=== PATIENT | female | born 1975 ===

== ENCOUNTER 2016-11-16 22:47 | Emergency (ER) | payer SELFPAY ==
[2016-11-17 00:03] VITALS: BP 122/69; PULSE 96; RESP 16; TEMP 98.7; O2SAT 99
--- NOTE | 2016-11-17 01:50 | ED PDOC ---
HPI: CCC, URI, Sore Throat Time Seen by Provider: 11/17/16 01:49 Chief Complaint (Nursing): ENT Problem Chief Complaint (Provider): throat pain, sore throat History Per: Patient Additional Complaint(s): 41-year-old female presents to emergency department with sore throat and bilateral ear pain ongoing for 7 days. Patient has not been taking any medication for symptomatic relief. She denies recent travel or known sick contacts, no coughing, chest pain or shortness of breath. Patient is tolerating liquids and solids. Past Medical History Reviewed: Historical Data, Nursing Documentation, Vital Signs Vital Signs: Last Vital Signs Temp 98.7 F 11/17/16 00:00 Pulse 96 H 11/17/16 00:00 Resp 16 11/17/16 00:00 BP 122/69 11/17/16 00:00 Pulse Ox 99 11/17/16 02:30 - Medical History PMH: No Chronic Diseases - Surgical History Surgical History: Cholecystectomy - Family History Family History: States: No Known Family Hx - Living Arrangements Living Arrangements: With Family - Social History Current smoker - smoking cessation education provided: No Alcohol: None Drugs: Denies - Home Medications Home Medications: Ambulatory Orders Medication Instructions Recorded Nitrofurantoin Macrocrystals 100 mg PO BID #10 cap 03/22/15 [Macrobid] Cephalexin [Keflex] 500 mg PO TID #15 cap 08/05/15 Phenazopyridine HCl [Pyridium] 100 mg PO BID #6 tablet 08/05/15 Ibuprofen 600 mg PO Q6H PRN #20 tab 02/03/16 Ciprofloxacin/Ciprofloxa HCl 500 mg PO BID #10 ter 04/04/16 [Ciprofloxacin] Amoxicillin/Clavulanate [Augmentin 1 tab PO BID #20 tab 05/30/16 500 MG-125 MG] Fluticasone Propionate [Flonase] 2 spray NS DAILY #1 bottle 05/30/16 Dicyclomine [Dicyclomine HCl] 10 mg PO TID PRN #10 cap 07/15/16 Ondansetron [Zofran] 4 mg PO Q6H PRN #10 tab 07/15/16 Loperamide [Imodium] 2 mg PO ONCE #10 cap 07/16/16 Ranitidine HCl [Zantac] 1 tab PO DAILY PRN #10 tablet 07/16/16 Amoxicillin/Clavulanate [Augmentin 1 tab PO BID #14 tab 11/17/16 875 MG-125 MG] Ibuprofen [Motrin] 600 mg PO Q6 PRN #15 tab 11/17/16 - Allergies Allergies/Adverse Reactions: Allergies Allergy/AdvReac Type Severity Reaction Status Date / Time No Known Allergies Allergy Verified 07/16/16 10:25 Review of Systems ROS Statement: Except As Marked, All Systems Reviewed And Found Negative Constitutional: Negative for: Fever, Chills ENT: Positive for: Ear Pain, Throat Pain, Throat Swelling Respiratory: Negative for: Cough Neurological: Negative for: Headache, Dizziness Physical Exam - Reviewed Nursing Documentation Reviewed: Yes Vital Signs Reviewed: Yes - Physical Exam Appears: Positive for: Well, Non-toxic, No Acute Distress Skin: Negative for: Rash Eye Exam: Positive for: Normal appearance, EOMI, PERRL ENT: Positive for: TM Is/Are (normal bilaterally), Pharyngeal Erythema, Tonsillar Exudate (bilaterally), Tonsillar Swelling Cardiovascular/Chest: Positive for: Regular Rate, Rhythm Respiratory: Positive for: Normal Breath Sounds Neurologic/Psych: Positive for: Alert, Oriented - Laboratory Results Urine POC: Negative - ECG O2 Sat by Pulse Oximetry: 99 Pulse Ox Interpretation: Normal Medical Decision Making Medical Decision Making: Impression: Pharyngitis, tonsillitis Plan: Throat culture Initial dose augmentin 875 mg IM decadron PO motrin Rx motrin and augmentin given. Disposition - Clinical Impression Clinical Impression: Tonsillitis, Pharyngitis - Patient ED Disposition Is Patient to be Admitted: No Counseled Patient/Family Regarding: Studies Performed, Diagnosis, Need For Followup, Rx Given - Disposition Referrals: [facility] [Outside] Disposition: Routine/Home Disposition Time: 02:26 Condition: STABLE Additional Instructions: Take rx meds as directed. Drink plenty of fluids. Follow up with primary care doctor or clinic in 2-3 days. Prescriptions: Amoxicillin/Clavulanate [Augmentin 875 MG-125 MG] 1 tab PO BID #14 tab Ibuprofen [Motrin] 600 mg PO Q6 PRN #15 tab PRN Reason: Pain, Moderate (4-7) Instructions: Pharyngitis (ED), Tonsillitis (ED) Print Language: FAROESE
[2016-11-17] MEDS ORDERED: Amoxicillin-Clav 875-125 mg Tab PO STA (02:23)
[2016-11-17] MEDS ORDERED: Amoxicillin-Clav 875-125 mg Tab PO ONE (03:02)
== END 2016-11-17 03:27 | disposition home or self-care (01) ==
LOC: H.ER 22:47
DX: J03.90 Acute tonsillitis, unspecified (principal); H92.09 Otalgia, unspecified ear

== ENCOUNTER 2016-11-20 18:48 | Emergency (ER) | payer SELFPAY ==
[2016-11-20 19:29] VITALS: BP 148/84; PULSE 85; RESP 16; TEMP 98.2; O2SAT 100
--- NOTE | 2016-11-20 20:19 | ED PDOC ---
HPI: CCC, URI, Sore Throat Time Seen by Provider: 11/20/16 19:42 Chief Complaint (Nursing): ENT Problem Chief Complaint (Provider): Cough, Congestion, Sore Throat History Per: Patient History/Exam Limitations: no limitations Have you had recent travel within the past 21 days to any of the following countries: [place], [place], [place] or [place]?: No Onset/Duration Of Symptoms: Days (4 days) Current Symptoms Are (Timing): Still Present Associated Symptoms: Sore Throat, Cough, Nasal Congestion. denies: Fever Additional Complaint(s): Manisha Gould, a 41 year old female, presents to the ED with cough, congestion and sore throat she has been experiencing for over a week. The patient states she was initially seen in the ED 4 days ago and was prescribed augmentin and ibuprofen without relief. She states that despite taking medicine her symptoms have not improved. Denies fever, sick contact, shortness of breath , throat swelling, and rash. Past Medical History Reviewed: Historical Data, Nursing Documentation, Vital Signs Vital Signs: Last Vital Signs Temp 98.2 F 11/20/16 19:27 Pulse 85 11/20/16 19:27 Resp 16 11/20/16 19:27 BP 148/84 11/20/16 19:27 Pulse Ox 100 11/20/16 20:28 - Medical History PMH: No Chronic Diseases - Surgical History Surgical History: Cholecystectomy - Family History Family History: States: Unknown Family Hx - Home Medications Home Medications: Ambulatory Orders Medication Instructions Recorded Nitrofurantoin Macrocrystals 100 mg PO BID #10 cap 03/22/15 [Macrobid] Cephalexin [Keflex] 500 mg PO TID #15 cap 08/05/15 Phenazopyridine HCl [Pyridium] 100 mg PO BID #6 tablet 08/05/15 Ibuprofen 600 mg PO Q6H PRN #20 tab 02/03/16 Ciprofloxacin/Ciprofloxa HCl 500 mg PO BID #10 ter 04/04/16 [Ciprofloxacin] Amoxicillin/Clavulanate [Augmentin 1 tab PO BID #20 tab 05/30/16 500 MG-125 MG] Fluticasone Propionate [Flonase] 2 spray NS DAILY #1 bottle 05/30/16 Dicyclomine [Dicyclomine HCl] 10 mg PO TID PRN #10 cap 07/15/16 Ondansetron [Zofran] 4 mg PO Q6H PRN #10 tab 07/15/16 Loperamide [Imodium] 2 mg PO ONCE #10 cap 07/16/16 Ranitidine HCl [Zantac] 1 tab PO DAILY PRN #10 tablet 07/16/16 Amoxicillin/Clavulanate [Augmentin 1 tab PO BID #14 tab 11/17/16 875 MG-125 MG] Ibuprofen [Motrin] 600 mg PO Q6 PRN #15 tab 11/17/16 Benzonatate [Tessalon Perle] 100 mg PO Q8 PRN #30 capsule 11/20/16 Fluticasone Propionate [Flonase] 2 spr NS DAILY PRN #1 bottle 11/20/16 - Allergies Allergies/Adverse Reactions: Allergies Allergy/AdvReac Type Severity Reaction Status Date / Time No Known Allergies Allergy Verified 07/16/16 10:25 Review of Systems Constitutional: Negative for: Fever ENT: Positive for: Nose Congestion, Throat Pain, Other Respiratory: Positive for: Cough. Negative for: Shortness of Breath Skin: Negative for: Rash Physical Exam - Reviewed Nursing Documentation Reviewed: Yes Vital Signs Reviewed: Yes - Physical Exam Appears: Positive for: Non-toxic, No Acute Distress Head Exam: Positive for: ATRAUMATIC, NORMOCEPHALIC Skin: Positive for: Normal Color, Warm. Negative for: Rash Eye Exam: Positive for: EOMI, Normal appearance, PERRL ENT: Positive for: TM Is/Are (non-erythematous, non-bulging b/l), Tonsillar Swelling (minimal tonsillar swelling.), Other (Tonsils non kissiing; able to swallow saliva; no trismus). Negative for: Sinus Pain/Drainage, Pharyngeal Erythema, Tonsillar Exudate Neck: Positive for: Normal, Painless ROM Cardiovascular/Chest: Positive for: Regular Rate, Rhythm Respiratory: Positive for: Normal Breath Sounds, Other (Actively coughing; lungs clear.). Negative for: Decreased Breath Sounds, Accessory Muscle Use, Crackles, Rales, Rhonchi, Wheezing, Respiratory Distress Gastrointestinal/Abdominal: Positive for: Normal Exam, Soft. Negative for: Tenderness, Organomegaly Back: Positive for: Normal Inspection. Negative for: L CVA Tenderness, R CVA Tenderness Extremity: Positive for: Normal ROM Neurologic/Psych: Positive for: Alert, Oriented Comments: No organalmegaly. - Laboratory Results Urine POC: Negative - ECG O2 Sat by Pulse Oximetry: 100 (RA) Pulse Ox Interpretation: Normal - Radiology X-Ray: Interpreted by Me (CXR, neck soft tissue x-ray) X-Ray Interpretation: No Acute Disease Medical Decision Making Medical Decision Makin:42 Initial Impression: 41 year old female presenting with cough, sore throat and nasal congestion. Initial Plan: * CXR PA&LAT * RAD neck soft tissue * Infectious mononucleosis Scribe Attestation Documented by Jessica Milan acting as a scribe for Wilbert Corea PA-C. Provider Attestation: All medical record entries made by the Scribe were at my direction and personally dictated by me. I have reviewed the chart and agree that the record accurately reflects my personal performance of the history, physical exam, medical decision making, and the department course for this patient. I have also personally directed, reviewed, and agree with the discharge instructions and disposition Disposition - Clinical Impression Clinical Impression: URI (upper respiratory infection) - Patient ED Disposition Is Patient to be Admitted: No - Disposition Referrals: [facility] [Outside] Disposition: Routine/Home Disposition Time: 21:50 Condition: STABLE Prescriptions: Benzonatate [Tessalon Perle] 100 mg PO Q8 PRN #30 capsule PRN Reason: Cough Fluticasone Propionate [Flonase] 2 spr NS DAILY PRN #1 bottle PRN Reason: Allergy Symptoms Instructions: Upper Respiratory Infection (ED) Print Language: TAMAZIGHT
--- NOTE | 2016-11-21 10:59 | RAD ---
PROCEDURE: Radiographs of the neck (soft tissue). HISTORY: pain COMPARISON: None. TECHNIQUE: Frontal and Lateral Radiographs of the neck, optimized for soft tissue visualization. FINDINGS: SOFT TISSUES: The prevertebral soft tissues unremarkable. No evidence of significant of adenoidal or tonsillar enlargement. Airway is patent. CERVICAL SPINE: No acute compression nor displaced fractures. Vertebral bodies exhibit normal stature. Mild straightening of the normal cervical lordosis however vertebral bodies otherwise exhibit normal alignment. Vertebral bodies and facets are otherwise normally aligned Mild multilevel degenerative spondylosis most notably affecting C5-C6 and C6-C7 levels. OTHER FINDINGS: None. IMPRESSION: Unremarkable radiographs of the soft tissues of the neck. . Mild degenerative spondylosis most notably affecting C5-C6 however C6-C7 and to a lesser degree remaining levels
--- NOTE | 2016-11-21 10:59 | RAD ---
HISTORY: cough COMPARISON: Comparison chest 05/18/2014. TECHNIQUE: Chest PA and lateral FINDINGS: LUNGS: No active pulmonary disease. PLEURA: No significant pleural effusion identified. No pneumothorax apparent. CARDIOVASCULAR: Normal. OSSEOUS STRUCTURES: Mild multilevel degenerative spondylosis of the thoracic spine. VISUALIZED UPPER ABDOMEN: Normal. OTHER FINDINGS: None. IMPRESSION: No active disease.
== END 2016-11-20 22:13 | disposition home or self-care (01) ==
LOC: H.ER 18:48
DX: J06.9 Acute upper respiratory infection, unspecified (principal); R09.81 Nasal congestion; R05 Cough; J02.9 Acute pharyngitis, unspecified

== ENCOUNTER 2017-01-07 12:31 | Emergency (ER) | payer OTHER ==
[2017-01-07 12:39] VITALS: BP 115/65; PULSE 77; RESP 18; TEMP 98.2; O2SAT 99
--- NOTE | 2017-01-07 13:07 | ED PDOC ---
HPI: Female Pain Time Seen by Provider: 01/07/17 12:45 Chief Complaint (Nursing): Female Genitourinary Chief Complaint (Provider): Dysuria History Per: Patient, Family (Patient's daughter at bedside is translating in Bangladeshi) History/Exam Limitations: no limitations Current Symptoms Are (Timing): Still Present Additional Complaint(s): Manisha Howe is a 41 year old female who presents to the emergency department with a complaint of dysuria and hematuria ongoing for 2 days. She denies any fever, chills, vomiting, or back pain. Patient does have slight suprapubic pain. No associated vaginal discharge. Patient denies concern for STD. LMP: 12/24/16 PMD: none Past Medical History Reviewed: Historical Data, Nursing Documentation, Vital Signs Vital Signs: Last Vital Signs Temp 98.2 F 01/07/17 12:38 Pulse 77 01/07/17 12:38 Resp 18 01/07/17 12:38 BP 115/65 01/07/17 12:38 Pulse Ox 99 01/07/17 12:38 - Medical History PMH: No Chronic Diseases - Surgical History Surgical History: Cholecystectomy - Family History Family History: States: No Known Family Hx - Living Arrangements Living Arrangements: With Family - Social History Current smoker - smoking cessation education provided: No Alcohol: None Drugs: Denies - Home Medications Home Medications: Ambulatory Orders Medication Instructions Recorded Nitrofurantoin Macrocrystals 100 mg PO BID #10 cap 03/22/15 [Macrobid] Cephalexin [Keflex] 500 mg PO TID #15 cap 08/05/15 Phenazopyridine HCl [Pyridium] 100 mg PO BID #6 tablet 08/05/15 Ibuprofen 600 mg PO Q6H PRN #20 tab 02/03/16 Ciprofloxacin/Ciprofloxa HCl 500 mg PO BID #10 ter 04/04/16 [Ciprofloxacin] Amoxicillin/Clavulanate [Augmentin 1 tab PO BID #20 tab 05/30/16 500 MG-125 MG] Fluticasone Propionate [Flonase] 2 spray NS DAILY #1 bottle 05/30/16 Dicyclomine [Dicyclomine HCl] 10 mg PO TID PRN #10 cap 07/15/16 Ondansetron [Zofran] 4 mg PO Q6H PRN #10 tab 07/15/16 Loperamide [Imodium] 2 mg PO ONCE #10 cap 07/16/16 Ranitidine HCl [Zantac] 1 tab PO DAILY PRN #10 tablet 07/16/16 Amoxicillin/Clavulanate [Augmentin 1 tab PO BID #14 tab 11/17/16 875 MG-125 MG] Ibuprofen [Motrin] 600 mg PO Q6 PRN #15 tab 11/17/16 Benzonatate [Tessalon Perle] 100 mg PO Q8 PRN #30 capsule 11/20/16 Fluticasone Propionate [Flonase] 2 spr NS DAILY PRN #1 bottle 11/20/16 Nitrofurantoin Macrocrystals 100 mg PO BID #14 cap 01/07/17 [Macrobid] Phenazopyridine HCl [Pyridium] 200 mg PO TID PRN #6 tablet 01/07/17 - Allergies Allergies/Adverse Reactions: Allergies Allergy/AdvReac Type Severity Reaction Status Date / Time No Known Allergies Allergy Verified 07/16/16 10:25 Review of Systems ROS Statement: Except As Marked, All Systems Reviewed And Found Negative Constitutional: Negative for: Fever, Chills Gastrointestinal: Positive for: Abdominal Pain. Negative for: Nausea, Vomiting Genitourinary Female: Positive for: Dysuria, Hematuria. Negative for: Vaginal Discharge, Vaginal Bleeding Musculoskeletal: Negative for: Back Pain Neurological: Negative for: Headache, Dizziness Physical Exam - Reviewed Nursing Documentation Reviewed: Yes Vital Signs Reviewed: Yes - Physical Exam Appears: Positive for: Well, Non-toxic, No Acute Distress Head Exam: Positive for: ATRAUMATIC, NORMAL INSPECTION, NORMOCEPHALIC Skin: Positive for: Normal Color. Negative for: Rash Cardiovascular/Chest: Positive for: Regular Rate, Rhythm Respiratory: Positive for: Normal Breath Sounds. Negative for: Wheezing, Respiratory Distress Gastrointestinal/Abdominal: Positive for: Soft, Tenderness (slightly to suprapubic region). Negative for: Normal Exam, Distended, Guarding, Rebound Back: Positive for: Normal Inspection. Negative for: L CVA Tenderness, R CVA Tenderness Extremity: Negative for: Pedal Edema Neurologic/Psych: Positive for: Alert, Oriented - Laboratory Results Urine POC: Negative Urine dip results: Positive for: Leukocyte Esterase (large), Blood (large) - ECG O2 Sat by Pulse Oximetry: 99 (RA) Pulse Ox Interpretation: Normal Medical Decision Making Medical Decision Making: Initial Impression: UTI Initial Plan: * Urine * Urine dipstick * Urine culture Patien was given rx pyridium and macrobid. Patient was instructed to drink plenty of fluids. She was referred to clinic and advised to follow up in 2-3 days. Scribe Attestation: Documented by Leilani Beauleiu, acting as a scribe for Ange Sun PA-C. Provider Scribe Attestation: All medical record entries made by the Scribe were at my direction and personally dictated by me. I have reviewed the chart and agree that the record accurately reflects my personal performance of the history, physical exam, medical decision making, and the department course for this patient. I have also personally directed, reviewed, and agree with the discharge instructions and disposition. Disposition - Clinical Impression Clinical Impression: UTI (urinary tract infection) - Patient ED Disposition Is Patient to be Admitted: No Counseled Patient/Family Regarding: Studies Performed, Diagnosis, Need For Followup, Rx Given - Disposition Referrals: [facility] [Outside] Disposition: Routine/Home Disposition Time: 13:21 Condition: STABLE Additional Instructions: TAKE RX MEDS DIRECTED. DRINK PLENTY OF FLUIDS. FOLLOW UP WITH CLINIC IN 2-3 DAYS. Prescriptions: Nitrofurantoin Macrocrystals [Macrobid] 100 mg PO BID #14 cap Phenazopyridine HCl [Pyridium] 200 mg PO TID PRN #6 tablet PRN Reason: Bladder Spasm Instructions: Urinary Tract Infection in Women (ED) Print Language: DIVEHI
== END 2017-01-07 13:38 | disposition home or self-care (01) ==
LOC: H.ER 12:31
DX: N39.0 Urinary tract infection, site not specified (principal)

== ENCOUNTER 2017-01-28 14:12 | Emergency (ER) | payer OTHER ==
[2017-01-28 14:21] VITALS: BP 127/71; PULSE 96; RESP 18; TEMP 99.9; O2SAT 100
--- NOTE | 2017-01-28 14:42 | ED PDOC ---
HPI: Back Time Seen by Provider: 01/28/17 14:20 Chief Complaint (Nursing): Back Pain Chief Complaint (Provider): Back Pain History Per: Patient History/Exam Limitations: no limitations Onset/Duration Of Symptoms: Days (x2) Current Symptoms Are (Timing): Still Present Additional Complaint(s): Manisha Gould is a 41 year old female with a history of lower back pain that presents to the ED with a chief complaint of increased lower back pain that she has been experiencing for the past two days. Patient reports that she took Advil yesterday without relief. She denies any fall, trauma, urinary or rectal incontinence, or urinary discomfort. Of Note: Patient had recent treatment for UTI one month prior in ED. Past Medical History Reviewed: Historical Data, Nursing Documentation, Vital Signs Vital Signs: Last Vital Signs Temp 99.9 F H 01/28/17 14:17 Pulse 96 H 01/28/17 14:17 Resp 18 01/28/17 14:17 BP 127/71 01/28/17 14:17 Pulse Ox 100 01/28/17 14:17 - Medical History PMH: Back Problems - Surgical History Surgical History: Cholecystectomy - Family History Family History: States: Unknown Family Hx - Home Medications Home Medications: Ambulatory Orders Medication Instructions Recorded Nitrofurantoin Macrocrystals 100 mg PO BID #10 cap 03/22/15 [Macrobid] Cephalexin [Keflex] 500 mg PO TID #15 cap 08/05/15 Phenazopyridine HCl [Pyridium] 100 mg PO BID #6 tablet 08/05/15 Ibuprofen 600 mg PO Q6H PRN #20 tab 02/03/16 Ciprofloxacin/Ciprofloxa HCl 500 mg PO BID #10 ter 04/04/16 [Ciprofloxacin] Amoxicillin/Clavulanate [Augmentin 1 tab PO BID #20 tab 05/30/16 500 MG-125 MG] Fluticasone Propionate [Flonase] 2 spray NS DAILY #1 bottle 05/30/16 Dicyclomine [Dicyclomine HCl] 10 mg PO TID PRN #10 cap 07/15/16 Ondansetron [Zofran] 4 mg PO Q6H PRN #10 tab 07/15/16 Loperamide [Imodium] 2 mg PO ONCE #10 cap 07/16/16 Ranitidine HCl [Zantac] 1 tab PO DAILY PRN #10 tablet 07/16/16 Amoxicillin/Clavulanate [Augmentin 1 tab PO BID #14 tab 11/17/16 875 MG-125 MG] Ibuprofen [Motrin] 600 mg PO Q6 PRN #15 tab 11/17/16 Benzonatate [Tessalon Perle] 100 mg PO Q8 PRN #30 capsule 11/20/16 Fluticasone Propionate [Flonase] 2 spr NS DAILY PRN #1 bottle 11/20/16 Nitrofurantoin Macrocrystals 100 mg PO BID #14 cap 01/07/17 [Macrobid] Phenazopyridine HCl [Pyridium] 200 mg PO TID PRN #6 tablet 01/07/17 Naproxen [Naprosyn Tab] 375 mg PO Q8 PRN #21 tab 01/28/17 diaZEpam [Valium] 5 mg PO Q8 #6 tab 01/28/17 - Allergies Allergies/Adverse Reactions: Allergies Allergy/AdvReac Type Severity Reaction Status Date / Time No Known Allergies Allergy Verified 07/16/16 10:25 Review of Systems Musculoskeletal: Positive for: Back Pain (lower back) Physical Exam - Reviewed Nursing Documentation Reviewed: Yes Vital Signs Reviewed: Yes - Physical Exam Appears: Positive for: Non-toxic, No Acute Distress Head Exam: Positive for: ATRAUMATIC, NORMOCEPHALIC Skin: Positive for: Normal Color, Warm Cardiovascular/Chest: Positive for: Regular Rate, Rhythm. Negative for: Murmur Respiratory: Positive for: Normal Breath Sounds. Negative for: Wheezing Back: Positive for: Other (paralumbar tenderness noted b/l). Negative for: Normal Inspection Extremity: Positive for: Normal ROM. Negative for: Tenderness Neurologic/Psych: Positive for: Alert, Oriented. Negative for: Motor/Sensory Deficits - Laboratory Results Urine POC: Negative Urine dip results: Positive for: Blood. Negative for: Leukocyte Esterase, Nitrate, Ketones, Glucose, Bilirubin, Protein - ECG O2 Sat by Pulse Oximetry: 100 (RA) Pulse Ox Interpretation: Normal Medical Decision Making Medical Decision Making: Impression: BACK STRAIN Plan: * Urine Dipstick * Urine * Toradol 60 mg IM * Reevaluation Scribe Attestation: Documented by Breanna Deleon, acting as a scribe for Raine Rosenthal PA-C. Provider Scribe Attestation: All medical record entries made by the Scribe were at my direction and personally dictated by me. I have reviewed the chart and agree that the record accurately reflects my personal performance of the history, physical exam, medical decision making, and the department course for this patient. I have also personally directed, reviewed, and agree with the discharge instructions and disposition. Disposition - Clinical Impression Clinical Impression: Back strain - Patient ED Disposition Is Patient to be Admitted: No - Disposition Referrals: [facility] [Outside] Disposition: Routine/Home Disposition Time: 14:42 Condition: FAIR Prescriptions: diaZEpam [Valium] 5 mg PO Q8 #6 tab Naproxen [Naprosyn Tab] 375 mg PO Q8 PRN #21 tab PRN Reason: Pain, Severe (8-10) Instructions: Acute Low Back Pain (GEN) Forms: [employer] (Burkinan) Print Language: VIETNAMESE
== END 2017-01-28 15:26 | disposition home or self-care (01) ==
LOC: H.ER 14:12
DX: M54.9 Dorsalgia, unspecified (principal)

== ENCOUNTER 2017-08-24 08:33 | Emergency (ER) | payer SELFPAY ==
[2017-08-24 08:56] VITALS: RESP 18
--- NOTE | 2017-08-24 09:27 | ED PDOC ---
HPI: Female Pain Time Seen by Provider: 08/24/17 08:48 Chief Complaint (Nursing): Female Genitourinary Chief Complaint (Provider): Dysuria History Per: Patient, Family History/Exam Limitations: no limitations Onset/Duration Of Symptoms: Days (7) Additional Complaint(s): Pt reports burning with urination X 1 week. Denies hematuria, fever, nausea, vomiting, abdominal pain. Has had similar sxs in the past. Abnormal Vaginal Bleeding: No Past Medical History Reviewed: Nursing Documentation, Vital Signs Vital Signs: Last Vital Signs Temp 97 F L 08/24/17 08:53 Pulse 79 08/24/17 08:53 Resp 18 08/24/17 08:53 BP Pulse Ox 99 08/24/17 08:53 - Medical History PMH: Back Problems - Surgical History Surgical History: Cholecystectomy - Family History Family History: States: Unknown Family Hx - Living Arrangements Living Arrangements: With Family - Social History Current smoker - smoking cessation education provided: No Alcohol: None - Home Medications Home Medications: Ambulatory Orders Medication Instructions Recorded Nitrofurantoin Macrocrystals 100 mg PO BID #10 cap 03/22/15 [Macrobid] Cephalexin [Keflex] 500 mg PO TID #15 cap 08/05/15 Phenazopyridine HCl [Pyridium] 100 mg PO BID #6 tablet 08/05/15 Ibuprofen 600 mg PO Q6H PRN #20 tab 02/03/16 Ciprofloxacin/Ciprofloxa HCl 500 mg PO BID #10 ter 04/04/16 [Ciprofloxacin] Amoxicillin/Clavulanate [Augmentin 1 tab PO BID #20 tab 05/30/16 500 MG-125 MG] Fluticasone Propionate [Flonase] 2 spray NS DAILY #1 bottle 05/30/16 Dicyclomine [Dicyclomine HCl] 10 mg PO TID PRN #10 cap 07/15/16 Ondansetron [Zofran] 4 mg PO Q6H PRN #10 tab 07/15/16 Loperamide [Imodium] 2 mg PO ONCE #10 cap 07/16/16 Ranitidine HCl [Zantac] 1 tab PO DAILY PRN #10 tablet 07/16/16 Amoxicillin/Clavulanate [Augmentin 1 tab PO BID #14 tab 11/17/16 875 MG-125 MG] Ibuprofen [Motrin] 600 mg PO Q6 PRN #15 tab 11/17/16 Benzonatate [Tessalon Perle] 100 mg PO Q8 PRN #30 capsule 11/20/16 Fluticasone Propionate [Flonase] 2 spr NS DAILY PRN #1 bottle 11/20/16 Nitrofurantoin Macrocrystals 100 mg PO BID #14 cap 01/07/17 [Macrobid] Phenazopyridine HCl [Pyridium] 200 mg PO TID PRN #6 tablet 01/07/17 Naproxen [Naprosyn Tab] 375 mg PO Q8 PRN #21 tab 01/28/17 diaZEpam [Valium] 5 mg PO Q8 #6 tab 01/28/17 Ibuprofen [Motrin] 600 mg PO Q6H PRN #20 tab 08/24/17 Nitrofurantoin Macrocrystals 100 mg PO BID #14 cap 08/24/17 [Macrobid] - Allergies Allergies/Adverse Reactions: Allergies Allergy/AdvReac Type Severity Reaction Status Date / Time No Known Allergies Allergy Verified 07/16/16 10:25 Review of Systems Constitutional: Negative for: Fever, Chills Cardiovascular: Negative for: Chest Pain Respiratory: Negative for: Cough, Shortness of Breath Gastrointestinal: Negative for: Nausea, Vomiting, Abdominal Pain, Diarrhea Genitourinary Female: Positive for: Hematuria. Negative for: Dysuria, Frequency , Incontinence, Vaginal Discharge, Vaginal Bleeding, Pelvic Pain Musculoskeletal: Negative for: Back Pain Skin: Negative for: Rash, Lesions Neurological: Negative for: Headache Physical Exam - Reviewed Nursing Documentation Reviewed: Yes Vital Signs Reviewed: Yes - Physical Exam Appears: Positive for: Well, No Acute Distress Skin: Positive for: Normal Color, Warm, Dry Eye Exam: Positive for: Normal appearance, EOMI, PERRL Cardiovascular/Chest: Positive for: Regular Rate, Rhythm Respiratory: Positive for: Normal Breath Sounds Gastrointestinal/Abdominal: Positive for: Normal Exam, Bowel Sounds, Soft. Negative for: Tenderness Back: Positive for: Normal Inspection. Negative for: L CVA Tenderness, R CVA Tenderness Neurologic/Psych: Positive for: Alert, Oriented - ECG O2 Sat by Pulse Oximetry: 99 Medical Decision Making Medical Decision Makin yo female with dysuria. - UA - u preg Accession No. : [id number] Patient Name / ID : YASH TOBAR / [id number] Exam Date : 08/24/2017 11:10:19 ( Approved ) Study Comment : Sex / Age : F / [id number] Creator : Jim Dumont MD Dictator : Jim Dumont MD Industrial Relations Worker : International Coordinator : Jim Dumont MD Approver2 : Report Date : 08/24/2017 12:23:26 My Comment : HISTORY: Lower abdominal pain, dysuria COMPARISON: Pelvic ultrasound examination 01/19/2015. TECHNIQUE: Transabdominal and transvaginal ultrasonography were performed with longitudinal and transverse images submitted for interpretation FINDINGS: UTERUS: Measures 10.7 x 3.0 x 5.1 cm. Uterus is anteverted without significant interval change. No discrete interval myometrial lesion is identified. ENDOMETRIUM: Measures 5.0 mm in diameter. Unremarkable. CERVIX: No cervical abnormality identified. RIGHT OVARY: Measures 2.3 x 1.5 x 1.5 cm. No solid mass. Normal flow. A few small follicles are seen in the right ovary in the transvaginal portion of the examination. LEFT OVARY: The left ovary is not identified. No suspicious left adnexal findings are appreciated. FREE FLUID: No significant free fluid noted. OTHER FINDINGS: None. IMPRESSION: The left ovary is not identified. No suspicious left adnexal lesions are identified nevertheless. The remainder of the examination appears unremarkable. Disposition - Clinical Impression Clinical Impression: UTI (urinary tract infection) - Disposition Referrals: FAMILY PROVIDER,NO [Primary Care Provider] - [facility] [Outside] Disposition: Routine/Home Disposition Time: 12:37 Condition: STABLE Prescriptions: Ibuprofen [Motrin] 600 mg PO Q6H PRN #20 tab PRN Reason: Pain, Moderate (4-7) Nitrofurantoin Macrocrystals [Macrobid] 100 mg PO BID #14 cap Instructions: Urinary Tract Infections in Adults Forms: Izzy Money (British) Print Language: MALTESE
[2017-08-24 10:04] LABS: SQUAMOUS EPITHIAL 2 /hpf (0-5); URINE BACTERIA RARE (<OCC); URINE BILIRUBIN NEGATIVE (NEGATIVE); URINE BLOOD MODERATE (NEGATIVE); URINE CLARITY CLEAR (Clear); URINE COLOR STRAW (YELLOW); URINE GLUCOSE (UA) NEG (Normal); URINE LEUKOCYTE ESTERASE NEG Leu/uL (Negative); URINE NITRATE NEGATIVE (NEGATIVE); URINE PROTEIN NEGATIVE (NEGATIVE); URINE UROBILINOGEN 0.2-1.0 mg/dL (0.2-1.0)
--- NOTE | 2017-08-24 12:25 | US ---
HISTORY: Lower abdominal pain, dysuria COMPARISON: Pelvic ultrasound examination 01/19/2015. TECHNIQUE: Transabdominal and transvaginal ultrasonography were performed with longitudinal and transverse images submitted for interpretation FINDINGS: UTERUS: Measures 10.7 x 3.0 x 5.1 cm. Uterus is anteverted without significant interval change. No discrete interval myometrial lesion is identified. ENDOMETRIUM: Measures 5.0 mm in diameter. Unremarkable. CERVIX: No cervical abnormality identified. RIGHT OVARY: Measures 2.3 x 1.5 x 1.5 cm. No solid mass. Normal flow. A few small follicles are seen in the right ovary in the transvaginal portion of the examination. LEFT OVARY: The left ovary is not identified. No suspicious left adnexal findings are appreciated. FREE FLUID: No significant free fluid noted. OTHER FINDINGS: None. IMPRESSION: The left ovary is not identified. No suspicious left adnexal lesions are identified nevertheless. The remainder of the examination appears unremarkable.
[2017-08-24 12:46] VITALS: BP 128/72; PULSE 72; TEMP 98; O2SAT 100
== END 2017-08-24 12:48 | disposition home or self-care (01) ==
LOC: H.ER 08:33 → SUPCPDRO 08:33 → H.ER 12:48
DX: N39.0 Urinary tract infection, site not specified (principal); N83.01 Follicular cyst of right ovary

== ENCOUNTER 2017-12-19 23:17 | Emergency (ER) | payer OTHER, SELFPAY ==
[2017-12-19 23:36] VITALS: BP 122/76; PULSE 86; RESP 18; TEMP 98.3; O2SAT 99
--- NOTE | 2017-12-20 00:19 | ED PDOC ---
HPI: Female Pain Time Seen by Provider: 12/19/17 23:43 Chief Complaint (Nursing): Female Genitourinary Chief Complaint (Provider): Female Genitourinary History Per: Patient History/Exam Limitations: no limitations Onset/Duration Of Symptoms: Days Current Symptoms Are (Timing): Still Present Additional Complaint(s): Manisha Howe is a 42 year old female with no past medical history who is presenting to the ED for evaluation of urinary frequency and urgency onset yesterday. Patient denies any fever, back pain, vaginal bleeding, nausea, or diarrhea. She offers no other medical complaints at this time. PMD: Doctor, Conversion Past Medical History Reviewed: Historical Data, Nursing Documentation, Vital Signs Vital Signs: Last Vital Signs Temp 98.3 F 12/19/17 23:33 Pulse 86 12/19/17 23:33 Resp 18 12/19/17 23:33 BP 122/76 12/19/17 23:33 Pulse Ox 99 12/19/17 23:33 - Medical History PMH: Back Problems - Surgical History Surgical History: Cholecystectomy - Family History Family History: States: Unknown Family Hx - Social History Current smoker - smoking cessation education provided: No Alcohol: None Drugs: Denies - Home Medications Home Medications: Ambulatory Orders Medication Instructions Recorded Nitrofurantoin Macrocrystals 100 mg PO BID #10 cap 03/22/15 [Macrobid] Cephalexin [Keflex] 500 mg PO TID #15 cap 08/05/15 Phenazopyridine HCl [Pyridium] 100 mg PO BID #6 tablet 08/05/15 Ibuprofen 600 mg PO Q6H PRN #20 tab 02/03/16 Ciprofloxacin/Ciprofloxa HCl 500 mg PO BID #10 ter 04/04/16 [Ciprofloxacin] Amoxicillin/Clavulanate [Augmentin 1 tab PO BID #20 tab 05/30/16 500 MG-125 MG] Fluticasone Propionate [Flonase] 2 spray NS DAILY #1 bottle 05/30/16 Dicyclomine [Dicyclomine HCl] 10 mg PO TID PRN #10 cap 07/15/16 Ondansetron [Zofran] 4 mg PO Q6H PRN #10 tab 07/15/16 Loperamide [Imodium] 2 mg PO ONCE #10 cap 07/16/16 Ranitidine HCl [Zantac] 1 tab PO DAILY PRN #10 tablet 07/16/16 Amoxicillin/Clavulanate [Augmentin 1 tab PO BID #14 tab 11/17/16 875 MG-125 MG] Ibuprofen [Motrin] 600 mg PO Q6 PRN #15 tab 11/17/16 Benzonatate [Tessalon Perle] 100 mg PO Q8 PRN #30 capsule 11/20/16 Fluticasone Propionate [Flonase] 2 spr NS DAILY PRN #1 bottle 11/20/16 Nitrofurantoin Macrocrystals 100 mg PO BID #14 cap 01/07/17 [Macrobid] Phenazopyridine HCl [Pyridium] 200 mg PO TID PRN #6 tablet 01/07/17 Naproxen [Naprosyn Tab] 375 mg PO Q8 PRN #21 tab 01/28/17 diaZEpam [Valium] 5 mg PO Q8 #6 tab 01/28/17 Ibuprofen [Motrin] 600 mg PO Q6H PRN #20 tab 08/24/17 Nitrofurantoin Macrocrystals 100 mg PO BID #14 cap 08/24/17 [Macrobid] Nitrofurantoin Macrocrystals 100 mg PO BID #20 cap 12/20/17 [Macrobid] Phenazopyridine [Pyridium] 200 mg PO BID #6 tab 12/20/17 - Allergies Allergies/Adverse Reactions: Allergies Allergy/AdvReac Type Severity Reaction Status Date / Time No Known Allergies Allergy Verified 07/16/16 10:25 Review of Systems ROS Statement: Except As Marked, All Systems Reviewed And Found Negative Constitutional: Negative for: Fever Gastrointestinal: Negative for: Vomiting, Diarrhea Genitourinary Female: Positive for: Frequency, Other (urinary urgency). Negative for: Vaginal Bleeding Musculoskeletal: Negative for: Back Pain Physical Exam - Reviewed Nursing Documentation Reviewed: Yes Vital Signs Reviewed: Yes - Physical Exam Comments: GENERAL APPEARANCE: Patient is awake, alert, oriented x 3, in no painful distress. SKIN: Warm, dry; (-) cyanosis. EYES: (-) conjunctival pallor, (-) scleral icterus. ENMT: Mucous membranes moist. NECK: (-) tenderness, (-) stiffness, (-) lymphadenopathy. CHEST AND RESPIRATORY: (-) rales, (-) rhonchi, (-) wheezes; breath sounds equal bilaterally. HEART AND CARDIOVASCULAR: (-) irregularity; (-) murmur, (-) gallop. ABDOMEN AND GI: (-) distention (-) tenderness. (-) guarding, (-) rebound, (-) palpable masses, (-) CVA tenderness. EXTREMITIES: (-) deformity, (-) edema, (+) distal pulses. NEURO AND PSYCH: Mental status as above; (-) focal findings. - ECG O2 Sat by Pulse Oximetry: 99 Medical Decision Making Medical Decision Making: Previous medical records reviewed, on 01/07/17 patient had a urine cx which was + E coli, sensitive to macrobid. Impression : UTI Plan : - Uhcg - UA - Urine cx - FS FS 126 Uhcg (-) UA (+) nitrates, (+) large leuks, (+) large blood Urine cx sent and pending. Patient given macrobid PO. Diagnostic results d/w the patient in great detail. Diagnosis of UTI d/w the patient. Based on history, exam and diagnostic results, plan will be for outpatient follow up. Patient instructed to follow-up with the clinic in 1-2 days without fail. Advised to take medication as prescribed. Return to the emergency room at any time for any new or worsening symptoms. Patient states she fully agrees with and understands discharge instructions. States that she agrees with the plan and disposition. Verbalized and repeated discharge instructions and plan. I have given the patient opportunity to ask any additional questions. Disposition - Clinical Impression Clinical Impression: UTI (urinary tract infection) - Patient ED Disposition Is Patient to be Admitted: No Counseled Patient/Family Regarding: Studies Performed, Diagnosis, Need For Followup, Rx Given - Disposition Referrals: [facility] [Outside] Disposition: Routine/Home Disposition Time: 00:15 Condition: STABLE Additional Instructions: Thank you for letting us take care of you today. You were treated for UTI. The emergency medical care you received today was directed at your acute symptoms. If you were prescribed any medication, please fill it and take as directed. It may take several days for your symptoms to resolve. Return to the Emergency Department if your symptoms worsen, do not improve, or if you have any other problems. Please call one of the physicians/clinics you have been referred to that are listed on the Patient Visit Information form that is included in your discharge packet. Bring any paperwork you were given at discharge with you along with any medications you are taking to your follow up visit. Our treatment cannot replace ongoing medical care by a primary care provider (PCP) outside of the emergency department. Thank you for allowing the [facility] team to be part of your care today. If you had a urine test done : We will call you regarding any positive results * Prescriptions: Nitrofurantoin Macrocrystals [Macrobid] 100 mg PO BID #20 cap Phenazopyridine [Pyridium] 200 mg PO BID #6 tab Instructions: Urinary Tract Infections in Adults Forms: [employer] (Albanian) Print Language: WELSH
== END 2017-12-20 00:50 | disposition home or self-care (01) ==
LOC: H.ER 23:17
DX: N39.0 Urinary tract infection, site not specified (principal)